=== PATIENT | male | born 1955 | race Caucasian/White ===

== ENCOUNTER 2016-06-02 01:58 | Emergency (ER) | payer OTHER ==
--- NOTE | 2016-06-02 02:16 | PD ---
HPI Chief Complaint: cardiac arrest Time Seen by Provider: 02:13 Travel History International Travel<30 days: No Contact w/Intl Traveler<30days: No Traveled to known affect area: No History of Present Illness HPI 61-year-old male presents to the emergency department by EMS transport from home. Patient reportedly upon EMS arrival complained of shortness of breath and then collapsed and was monitored in bradycardic rhythm without pulse consistent with PEA. IO was accessed patient was administered IV fluids and epinephrine. Patient's blood sugar was 100 reportedly. History unknown. Medications unknown. Allergies unknown. Patient remained and PEA and asystole rhythms until arrival to the emergency department and had received 6 amps of epinephrine via IO en route. Patient was unable to be intubated in route after reportedly multiple attempts. Upon arrival into the emergency department patient unresponsive no spontaneous respirations no heart sounds no pulses and monitored in idioventricular rhythm. Patient receiving supplemental oxygen through [place] with mask. Patient continued with management of PEA. PFSH Past Medical History Narrative Medical UNKNOWN Social History Tobacco Use: No (unknown) Allergies-Medications Comments UNKNOWN Narrative Medication UNKNOWN Review of Systems ROS Limitations: Clinical Condition, Unresponsive Physical Exam Exam Limitations: Clinical Condition Narrative GENERAL: Well-developed well-nourished male unresponsive, no spontaneous respirations, ambu assisted ventilation, no pulse, monitored in agonal rhythm without pulse consistent with PEA SKIN: Warm and dry. HEAD: Normocephalic. EYES: No scleral icterus. No injection or drainage. Pupils nonreactive. NECK: Supple, trachea midline. No JVD or lymphadenopathy. CARDIOVASCULAR: No heart sounds to auscultation RESPIRATORY: No spontaneous breath sounds; breath sounds mildly auscultated with [place] assisted ventilation GASTROINTESTINAL: Abdomen soft, non-tender, nondistended. MUSCULOSKELETAL: No cyanosis, or edema. MDM Medical Decision Making Medical Screen Exam Complete: Yes Emergency Medical Condition: Yes Medical Record Reviewed: Yes Differential Diagnosis Arrhythmia, myocardial infarction, pulmonary embolism, acute dissection, CVA Narrative Course 61-year-old male with witnessed complaint of shortness of breath and subsequent immediate collapse becoming unresponsive without any spontaneous respirations no breath sounds auscultation no pulse to palpation no heart sounds to auscultation and monitored in a PEA by EMS report who has received 6 and pulse of epinephrine and no change in status from asystole to bradycardic PEA presents without intubation IO access and reported blood sugar by EMS of 100 patient was transferred from the EMS stretcher to the ED stretcher no spontaneous respirations pupils nonreactive no auscultated heart sounds or breath sounds no palpable pulse on hospital monitor patient is in idioventricular rhythm with no pulse consistent with PEA IV fluids administered additional epinephrine administered compressions continued and patient intubated by me using the [place] scope and intubated with a #8 cuffed endotracheal tube. Patient given additional dose of epinephrine remains in PEA patient also administered bicarbonate and calcium; blood sugar in the emergency department was noted to be 400 unknown medical history, medication use, allergies, renal function or electrolyte status compressions continued patient given final dose of epinephrine 1 AM no response and bedside ultrasound performed by me reveals no cardiac wall movement or motility. Patient pronounced by me at 2:12 AM. Please refer to code summary. Procedures Procedure Narrative Emergently following procedure was performed: INTUBATION: The patient was put in optimal position for the procedure. The patient was intubated with a 8 cuffed endotracheal tube. Tube placement was confirmed by [place]-scope visualization of the tube and balloon passing through the cords, capnometry and subsequent chest x-ray. Breath sounds were equal and well aerated bilaterally postintubation. No breath sounds over stomach. Patient tolerated procedure well. Diagnosis Primary Impression: Cardiac arrest Disposition: 20 SENT TO [facility] Condition: Cherry Elias MD Jun 02, 2016 02:16
[2016-06-02] MEDS ORDERED: CALCIUM CHLORIDE 10% SOLN 1 GRAM/10 ML SYR IV ONE (05:00)
[2016-06-02] MEDS ORDERED: SODIUM BICARBONATE 8.4% INJ 50 MEQ/50 ML SYR IV ONE (05:00)
[2016-06-02] MEDS ORDERED: EPINEPHrine HCL (1:10,000) 1 MG/10 ML SYRINGE IV ONE (05:00)
== END 2016-06-02 04:22 | disposition expired ==
LOC: NEPC 01:58 → NEPI 04:22
DX: I46.9 Cardiac arrest, cause unspecified (principal)
CPT/HCPCS: 31500; 92950; 99285; J0171